=== PATIENT | male | born 1965 | race Caucasian/White ===

== ENCOUNTER 2021-12-31 22:15 | Emergency (ER) | payer OTHER ==
[~2021-12-31] VITALS: Ht 185.4 cm; Wt 93.0 kg
[2021-12-31 23:06] LABS: ABSOLUTE NEUTROPHILS 5.3 thou/uL (1.4-8.2); BASOPHILS 0.4 % (0.0-2.0); EOSINOPHILS 2.7 % (0.0-3.0); HEMATOCRIT 41.1 % (42.0-52.0); HEMOGLOBIN 14.2 gm/dL (14.0-18.0); LYMPHOCYTES 20.2 % (24.0-44.0); MCH 31.1 pg (26.0-34.0); MCHC 34.6 g/dL (28.0-37.0); MONOCYTES 7.3 % (1.0-8.0); PLATELET COUNT 329 thou/uL (150-400); POLYS 69.4 % (36.0-66.0); RBC 4.57 mil/uL (4.50-6.00); RDW 13.4 % (10.5-14.5); WBC 7.6 thou/uL (4.0-11.0)
[2021-12-31 23:20] LABS: CALCIUM 8.1 mg/dL (8.5-10.1); CREATININE 1.1 mg/dL (0.7-1.3); POTASSIUM 3.7 mmol/L (3.5-5.1)
[2021-12-31 23:25] LABS: APTT 25.6 Seconds (24.5-32.8); INR 0.98; PROTIME 10.7 Seconds (10.5-12.1)
[2021-12-31 23:30] LABS: ALBUMIN 3.2 g/dL (3.4-5.0); MAGNESIUM 1.9 mg/dL (1.8-2.4); TOTAL BILIRUBIN 0.3 mg/dL (0.2-1.0); TOTAL PROTEIN 6.3 g/dL (6.4-8.2)
[2022-01-01 01:51] VITALS: BP 139/79
--- NOTE | 2022-01-01 07:39 | EKG ---
[address] [address] ELECTROCARDIOGRAM REPORT Name: VAUGHN CHINCHILLA [id number] Admission: 12/31/21 Attend Phys: Discharge: 01/01/22 Date of : 69 Report #: [id number] [facility] ED Test Date: 2021-12-31 Test Time: 22:27:10 Pat Name: VAUGHN CHINCHILLA Department: Room: Gender: [employer] Attendant: HEIDI : 1965 Requested By: Hamlet Aguilar Order Number: [id number] MD: Rajan Ghosh Measurements Intervals [place] Rate: 85 P: 58 UT: 154 QRS: 20 QRSD: 94 T: 59 QT: 356 QTc: 424 Interpretive Statements Sinus rhythm No previous ECG available for comparison Electronically Signed On 01-01-2022 7:39:06 [facility] REG[facility] by Rajan Ghosh [email or web address] <ELECTRONICALLY SIGNED> By: Rajan Ghosh MD, [facility] 01/01/22 0739 [id number] Rajan Ghosh MD, FACC /EPI
== END 2022-01-01 01:52 | disposition home or self-care (01) ==
LOC: ER 22:15
PROVIDERS: Emergency Medicine
DX: G25.2 Other specified forms of tremor (principal); Z20.822 Contact with and (suspected) exposure to COVID-19; R20.0 Anesthesia of skin